=== PATIENT | female | born 1975 | race Caucasian/White ===

== ENCOUNTER 2017-12-29 11:44 | Outpatient (CLI) | payer OTHER ==
--- NOTE | 2018-01-01 18:16 | Mammography Report ---
DIGITAL BILATERAL MAMMOGRAPHY: 12/29/2017 HISTORY: For baseline screening. Bilateral implants. TECHNIQUE: Bilateral digital CC, MLO, and implant displaced views. COMPARISON: None. FINDINGS: The breast tissue is heterogeneously dense. No suspicious dominant mass, architectural distortion, skin thickening, suspicious microcalcifications or other finding. Bilateral implants are present. IMPRESSION: NEGATIVE. BI-RADS category 1 - negative. Suggest return to routine screening in 12 months. STANDARD QUALIFYING STATEMENTS 1. This examination was reviewed with the aid of Computed-Aided Detection (CAD). 2. A negative or benign imaging report should not delay biopsy if clinically suspicious findings are present. Consider surgical consultation if warranted. More than 5% of cancers are not identified by imaging. 3. Dense breasts may obscure an underlying neoplasm. cc: ROCK WILSON TD: 01/01/2018 16:10 cc: ROCK WILSON
== END 2017-12-29 11:45 | disposition home or self-care (01) ==
LOC: DI 11:44
PROVIDERS: ATTEND Family Medicine
DX: Z12.31 Encounter for screening mammogram for malignant neoplasm of breast (principal); Z98.82 Breast implant status
CPT/HCPCS: 77067

== ENCOUNTER 2021-10-26 15:51 | Outpatient (CLI) | payer OTHER ==
--- NOTE | 2021-10-27 12:03 | Ultrasound Report ---
PROCEDURE: Pelvic w/Transvaginal INDICATIONS: EXCESSIVE AND FREQUENT MENSTRATION TECHNIQUE: Real-time scanning was performed of the pelvic organs, with image documentation. Additional endovagi nal scanning was necessary due to incomplete visualization of the adnexal and endometrial structures by transabdominal scanning. COMPARISON: None. FINDINGS: Limited scanning through the kidneys shows no hydronephrosis. No pathologic free abdominal or pelvic fluid. Uterus: Uterus is at the upper limits of normal in size at 9.9 x 5.1 x 6.4 cm. The uterine echotextu re is heterogeneous secondary to several myometrial masses which appear intramural. The first is ante rior fundal measuring 2.1 cm, the largest is posterior to the left measuring 3.1 cm, and another is s een posterior mid body measuring 1.3 cm. The endometrium measures 5.3 mm in combined thickness. Ovaries: The right ovary measures 5.4 x 2.7 x 2.5 cm for a volume of 19.2 cc. The left ovary measure s 3.8 x 1.9 x 2.8 cm for a volume of 10.5 cc. The right ovary contains a dominant follicle containing a daughter follicle measuring 2.4 and 1.8 cm respectively. There is normal vascularity in the right ovary and otherwise normal follicular echotexture. The left ovary has a normal follicular echotexture with less than 12 follicles present and normal vascularity. Cervix: Closed. Several tiny simple nabothian cysts are present. Bladder: Normal Other: No free pelvic fluid. No suspicious adnexal masses. IMPRESSION: 1. Normal sonographic appearance of the endometrium. 2. Borderline enlarged uterus with several myometrial fibroids. 3. Normal ovaries. Reviewed by: Sara Cali MD on 10/27/2021 12:02 PM PDT Approved by: Sara Cali MD on 10/27/2021 12:02 PM PDT Station ID: [id number]
== END 2021-10-26 15:52 | disposition home or self-care (01) ==
LOC: DI 15:51
PROVIDERS: ATTEND Naturopath
DX: N92.1 Excessive and frequent menstruation with irregular cycle (principal); D25.9 Leiomyoma of uterus, unspecified

== ENCOUNTER 2023-08-20 19:39 | Outpatient (CLI) | payer OTHER | END 2023-08-20 23:59 | disposition EMS.NT | LOC: EMS 19:39 | DX: F41.9 Anxiety disorder, unspecified (principal); R45.1 Restlessness and agitation ==

== ENCOUNTER 2023-08-20 22:55 | Emergency (ER) | payer OTHER ==
[2023-08-20 23:06] VITALS: BP 183/113; O2SAT 99
== END 2023-08-20 23:16 | disposition home or self-care (01) ==
LOC: ED 22:55
DX: Z76.89 Persons encountering health services in other specified circumstances (principal)

== ENCOUNTER 2024-03-04 16:41 | Emergency (ER) | payer MEDICAID, OTHER ==
[2024-03-04 17:05] LABS: BASOPHILS # (AUTO) 0.1 10^3/uL (0.0-0.1); BASOPHILS % (AUTO) 0.6 %; EOSINOPHILS % (AUTO) 0.5 %; HCT - HEMATOCRIT 28.6 % (37.0-47.0); HGB - HEMOGLOBIN 7.8 g/dL (12.0-16.0); LYMPHOCYTES % (AUTO) 12.3 %; MEAN CORPUSCULAR HEMOGLOBIN 19.1 pg (27.0-31.0); MEAN CORPUSCULAR HGB CONC 27.3 g/dL (32.0-36.0); MEAN CORPUSCULAR VOLUME 69.9 fL (81.0-99.0); MEAN PLATELET VOLUME 9.2 fL (7.9-10.8); MONOCYTES # (AUTO) 0.4 10^3/uL (0.0-1.0); MONOCYTES % (AUTO) 4.9 %; NEUTROPHILS # (AUTO) 6.3 10^3/uL (1.5-6.6); NEUTROPHILS % (AUTO) 81.3 %; PLT - PLATELET COUNT 426 10^3/uL (130-450); RED BLOOD COUNT 4.09 10^6/uL (4.20-5.40); RED CELL DISTRIBUTION WIDTH 21.2 % (12.0-15.0); WHITE BLOOD COUNT 7.7 x10^3/uL (4.8-10.8)
--- NOTE | 2024-03-04 17:14 | ED Physician Documentation ---
History of Present Illness - Stated complaint Stated Complaint: NUMBNESS IN HANDS/LEGS - Chief complaint Chief Complaint: Neuro - History obtained from History obtained from: Patient - History of Present Illness Timing: How many weeks ago (3) Pain level max: 0 Pain level now: 0 - Additonal information Additional information: Patient is a 48-year-old female who presents to the emergency department after seeing her primary care provider today. She states that she has had numbness in her bilateral feet and lower legs as well as in her bilateral hands over the past 3 weeks. She states that she does feel weak when she walks but she states most of her weakness is in trying to dorsiflex her feet. She has had no loss of bowel or bladder control. No difficulty breathing. No recent travel. No recent illnesses. Only medication is Adderall. Denies any drug use. Denies any IV drug use. No trauma. She states that she has not drink alcohol in approximately 6 months since having to wear an ankle monitoring bracelet. She states prior to that she only drink alcohol about once per week. She is in the emergency department with her mother. Review of Systems Constitutional: denies: Fever, Chills GI: denies: Vomiting Skin: denies: Rash Musculoskeletal: denies: Neck pain, Back pain Neurologic: denies: Confused PD PAST MEDICAL HISTORY - Past Medical History Past Medical History: Yes Cardiovascular: Peripheral Vascular Disease - Past Surgical History Past Surgical History: Yes Ortho: Other - Allergies Allergies/Adverse Reactions: Allergies Allergy/AdvReac Type Severity Reaction Status Date / Time No Known Drug Allergies Allergy Verified 03/04/24 16:48 - Social History Does the pt smoke?: No Smoking Status: Never smoker Does the pt drink ETOH?: Yes Does the pt have substance abuse?: No - Immunizations Immunizations are current?: No Immunizations: Other immun not current PD ED PE NORMAL - Vitals Vital signs reviewed: Yes - General General: Alert and oriented X 3, No acute distress - HEENT HEENT: PERRL, Moist mucous membranes - Neck Neck: Supple, no meningeal sign - Cardiac Cardiac: RRR, Strong equal pulses - Respiratory Respiratory: No respiratory distress, Clear bilaterally - Abdomen Abdomen: Soft, Non tender, Non distended - Back Back: No CVA TTP, No spinal TTP - Derm Derm: Warm and dry - Extremities Extremities: No edema, No calf tenderness / cord - Neuro Neuro: Alert and oriented X 3, sole assessor 2-12 intact, Other (Normal equipment or machinery cleaner strength bilaterally. Normal deep tendon reflexes of the brachioradialis bilaterally, knee and ankle jerk. Downgoing Babinski bilaterally. There is decreased strength of dorsiflexion of both feet. Otherwise normal examination of the extremities and strength throughout.) - Psych Psych: Normal mood, Normal affect Results - Vitals Vitals: Vital Signs - 24 hr 03/04/24 03/04/24 03/04/24 16:48 19:20 19:51 Temperature 36.9 C Heart Rate 111 H 76 81 Respiratory 16 20 22 Rate Blood Pressure 172/109 H 179/79 H O2 Saturation 100 99 95 Oxygen O2 Source Room air - Labs Labs: Laboratory Tests 03/04/24 03/04/24 03/04/24 16:59 16:59 18:15 WBC 7.7 RBC 4.09 L Hgb 7.8 L Hct 28.6 L MCV 69.9 L MCH 19.1 L MCHC 27.3 L RDW 21.2 H Plt Count 426 MPV 9.2 Neut # (Auto) 6.3 Lymph # (Auto) 1.0 L Bennett # (Auto) 0.4 Eos # (Auto) 0.0 Baso # (Auto) 0.1 Absolute Nucleated RBC 0.00 Nucleated RBC % 0.0 Platelet Estimate NORMAL (130-450,000) Platelet Morphology NORMAL APPEARANCE RBC Morph Micro Appear 2+ MICROCYTOSIS Sodium 135 Potassium 3.5 Chloride 99 L Carbon Dioxide 28 Anion Gap 8.0 BUN 14 Creatinine 0.6 Estimated GFR (MDRD) 107 Glucose 153 H Calcium 9.7 Magnesium 1.6 L Total Bilirubin 0.5 AST 25 ALT 21 Alkaline Phosphatase 34 L Total Creatine Kinase 246 H Total Protein 7.4 Albumin 4.5 Globulin 2.9 Albumin/Globulin Ratio 1.6 Lipase 26 Vitamin B12 477 Folate 26.3 TSH 1.09 Urine Color YELLOW Urine Clarity CLEAR Urine pH 6.0 Ur Specific [place] 1.020 Urine Protein NEGATIVE Urine Glucose (UA) NEGATIVE Urine Ketones NEGATIVE Urine Occult Blood SMALL H Urine Nitrite NEGATIVE Urine Bilirubin NEGATIVE Urine Urobilinogen 0.2 (NORMAL) Ur Leukocyte Esterase NEGATIVE Urine RBC 6-10 H Urine WBC 0-3 Ur Squamous Epith Cells FEW Squamous Urine Bacteria None Seen Ur Microscopic Review INDICATED Urine Culture Comments NOT INDICATED Urine HCG, Qual NEGATIVE Salicylates < 1.5 Urine Opiates Screen NEGATIVE Ur Buprenorphine Scrn NEGATIVE Ur Oxycodone Screen NEGATIVE Urine Methadone Screen NEGATIVE Acetaminophen 0.3 Ur Barbiturates Screen NEGATIVE Ur Tricyclics Screen NEGATIVE Ur Phencyclidine Scrn NEGATIVE Ur Amphetamine Screen POSITIVE H U Methamphetamines Scrn NEGATIVE U Benzodiazepines Scrn NEGATIVE Urine Cocaine Screen NEGATIVE U Cannabinoids Screen NEGATIVE Ur Drug Screen Comment CUTOFF CONC BELOW: Ethyl Alcohol < 10.0 - Rads (name of study) head ct Relevant Findings:: Final report received, See rad report PD Medical Decision Making - ED course Complexity details: reviewed results, re-evaluated patient, considered differential, d/w patient, d/w family ED course: No significant neurological abnormalities in the emergency department other than decreased strength in dorsiflexion of the bilateral ankles. No acute findings on head CT. Laboratory testing shows mild hypomagnesia her magnesium was replaced. She has chronic iron deficiency anemia as well. Recently was started on iron by her doctor. Is asymptomatic with this in the emergency department. Unclear etiology of her symptoms, likely that she will need further evaluation with MRI likely of the head and entire spine. Recommend that she follow-up with her PCP for this. She may also benefit from a neurology referral. No difficulty speaking, swallowing or breathing. No paralysis. Ambulating well in the emergency department, does appear to have weak dorsiflexion, especially on the right foot when walking. Patient counseled regarding signs and symptoms for which I believe and urgent re-evaluation would be necessary. Patient with good understanding of and agreement to plan and is comfortable going home at this time This document was made in part using voice recognition software. While efforts are made to proofread this document, sound alike and grammatical errors may occur. Departure - Departure Disposition: 01 Home, Self Care Clinical Impression: Paresthesia, Muscle weakness Condition: Good Instructions: ED Weakness [facility] Follow-Up: Prasad Arzate, PEREZ, [employer], [employer] [Primary Care Provider] - Tomorrow Comments: Your testing tonight did not show any acute abnormalities. Your head CT and laboratory testing are mostly normal except for a mild low magnesium. This was replaced. It is recommended that you have an MRI performed, likely of your head and spine. A neurology referral may be useful for you as well. This can be obtained with your primary care provider. Please return if you worsen. Forms: PCP List Discharge Date/Time: 03/04/24 20:23
[2024-03-04 17:21] LABS: ACETAMINOPHEN 0.3 ug/mL; ALBUMIN 4.5 g/dL (3.2-5.5); ALBUMIN/GLOBULIN RATIO 1.6 (1.0-2.2); ALKALINE PHOSPHATASE 34 IU/L (42-121); ALT ALANINE AMINOTRANSFERASE 21 IU/L (10-60); AST ASPARTATE AMINOTRANSFERASE 25 IU/L (10-42); BILIRUBIN,TOTAL 0.5 mg/dL (0.2-1.0); BUN - BLOOD UREA NITROGEN 14 mg/dL (6-20); CALCIUM 9.7 mg/dL (8.5-10.3); CARBON DIOXIDE - CO2 28 mmol/L (21-32); CHLORIDE 99 mmol/L (101-111); CK- CREATINE KINASE 246 IU/L (30-223); CREATININE 0.6 mg/dL (0.6-1.3); ETOH - ETHANOL < 10.0 mg/dL; GFR - MDRD 107 (>89); GLUCOSE 153 mg/dL (74-104); LIPASE 26 U/L (11-82); MAGNESIUM 1.6 mg/dL (1.7-2.3); POTASSIUM 3.5 mmol/L (3.5-4.5); SODIUM 135 mmol/L (135-145); TOTAL PROTEIN 7.4 g/dL (6.4-8.9)
[2024-03-04 17:24] LABS: SALICYLATE < 1.5 mg/dL
[2024-03-04 17:33] LABS: THYROID STIMULATING HORMONE 1.09 uIU/mL (0.34-5.60)
[2024-03-04 18:00] LABS: PLATELET ESTIMATE, MANUAL NORMAL (130-450,000) (NORMAL); PLATELET MORPHOLOGY NORMAL APPEARANCE (NORMAL)
[2024-03-04] MEDS: MAGNESIUM SULFATE 2 GRAM 2 GM/50 ML BAG IV ONE (18:12)
[2024-03-04] MEDS: SODIUM CHLORIDE 0.9% 1,000 ML IV STA (18:12)
[2024-03-04 18:39] LABS: BILIRUBIN,URINE NEGATIVE (NEGATIVE); GLUCOSE, URINE (UA) NEGATIVE (NEGATIVE); KETONES,URINE (UA) NEGATIVE (NEGATIVE); LEUKOCYTE ESTERASE, URINE NEGATIVE (NEGATIVE); NITRITE,URINE NEGATIVE (NEGATIVE); OCCULT BLOOD,URINE SMALL (NEGATIVE); PROTEIN,URINE NEGATIVE (NEGATIVE); UROBILINOGEN,URINE 0.2 (NORMAL) E.U./dL (NORMAL)
[2024-03-04 18:42] LABS: CLARITY,URINE CLEAR (CLEAR); HCG UR QUAL NEGATIVE
[2024-03-04 19:04] LABS: WBC,URINE 0-3 /HPF (0-5)
[2024-03-04 19:05] LABS: BACTERIA,URINE None Seen /HPF (None Seen); SQUAMOUS EPITHELIAL CELL,UR FEW Squamous (<= Few)
[2024-03-04 19:07] LABS: AMPHETAMINE SCREEN,URINE POSITIVE (NEGATIVE); COCAINE SCREEN URINE NEGATIVE (NEGATIVE); METHAMPHETAMINES SCREEN, URINE NEGATIVE (NEGATIVE); OPIATE SCREEN, URINE NEGATIVE (NEGATIVE); THC CANNABINOID SCREEN, URINE NEGATIVE (NEGATIVE)
[2024-03-04 19:08] LABS: BARBITURATE SCREEN,UR NEGATIVE (NEGATIVE); BENZODIAZEPINES SCREEN, URINE NEGATIVE (NEGATIVE); BUPRENORPHINE SCREEN, URINE NEGATIVE (NEGATIVE); METHADONE SCREEN, URINE NEGATIVE (NEGATIVE); OXYCODONE SCREEN, URINE NEGATIVE (NEGATIVE); TRICYCLIC ANTIDEPRESSANT,URINE NEGATIVE (NEGATIVE)
[2024-03-04 20:00] VITALS: BP 179/79; O2SAT 95
--- NOTE | 2024-03-04 20:12 | CT Report ---
PROCEDURE: Head WO INDICATIONS: weakness B LE TECHNIQUE: Noncontrast 4.5 mm thick angled axial sections acquired from the foramen magnum to the vertex. For r adiation dose reduction, the following was used: automated exposure control, adjustment of mA and/or kV according to patient size. COMPARISON: None. FINDINGS: Image quality: Diagnostic. CSF spaces: Basal cisterns are patent. No extra-axial fluid collections. Ventricles are normal in size and shape. Brain: No midline shift. No intracranial masses or hemorrhage. Mix-white matter interface is norm al. Skull and face: Calvarium and visualized facial bones are intact, without suspicious lesions. Sinuses: Visualized sinuses and mastoids are clear. IMPRESSION: No acute intracranial pathology. Reviewed by: Marietta Aponte MD, PhD on 03/04/2024 8:10 PM PDT Approved by: Marietta Aponte MD, PhD on 03/04/2024 8:10 PM PDT Station ID: [id number]
== END 2024-03-04 20:23 | disposition home or self-care (01) ==
LOC: ED 16:41
DX: R20.2 Paresthesia of skin (principal); M62.81 Muscle weakness (generalized); E83.42 Hypomagnesemia; D50.9 Iron deficiency anemia, unspecified
CPT/HCPCS: 36415; 80053; 80143; 80179; 80306; 81001; 81003; 81025; 82077; 82550; 82607; 82746; 83690; 83735; 84443; 85025; 87086; 96365; 99283

== ENCOUNTER 2024-03-08 09:18 | Outpatient (CLI) | payer MEDICAID ==
[2024-03-08 12:14] LABS: % IRON SATURATION 3 % (20-50); CHOL/HDL RATIO 1.9 (<4.4); CHOLESTEROL 202 mg/dL; HDL CHOLESTEROL 105 mg/dL; IRON 11 ug/dL (50-212); LDL CHOLESTEROL,CALCULATED 86 mg/dL; LDL/HDL RATIO 0.8 (<4.4); TOTAL IRON BINDING CAPACITY 431 ug/dL (250-450); TRANSFERRIN 308 mg/dL (203-362); TRIGLYCERIDES 53 mg/dL; VLDL CHOLESTEROL 11 mg/dL
[2024-03-08 12:39] LABS: FERRITIN 3.7 ng/mL (11.0-306.8)
[2024-03-08 13:16] LABS: ESTIMATED AVERAGE GLUCOSE 105 mg/dL (70-100); HEMOGLOBIN A1c% 5.3 % (4.27-6.07)
== END 2024-03-08 09:19 | disposition home or self-care (01) ==
LOC: LAB.N 09:18
DX: R53.83 Other fatigue (principal); R63.4 Abnormal weight loss
CPT/HCPCS: 36415; 80061; 82728; 83036; 83540; 83721; 84466

== ENCOUNTER 2024-04-10 16:08 | Outpatient (CLI) | payer MEDICAID ==
[~2024-04-10 16:08] MED LIST: GADOTERATE MEGLUMINE 5 MMOL/10 ML VIAL ONE
[2024-04-10] MEDS: GADOTERATE MEGLUMINE 5 MMOL/10 ML VIAL IVP ONE (17:22)
--- NOTE | 2024-04-10 19:54 | MRI Report ---
PROCEDURE: Brain W/WO INDICATIONS: UNSTEADY GAIT CONTRAST: clariscan 9.8ml TECHNIQUE: Noncontrast axial T1 spin echo, axial T2 fast spin echo, sagittal and axial FLAIR, coronal T2 fast sp in echo, axial gradient echo, axial diffusion and ADC through the brain. After the administration of contrast, axial and coronal T1 spin echo with fat saturation through the brain. COMPARISON: CT head 03/04/2024. FINDINGS: Image quality: Excellent. CSF spaces: Basal cisterns are patent. No extra-axial fluid collections. Ventricles are normal in size and shape. Brain: No midline shift. No intracranial bleeds or masses. No abnormal intracranial enhancement. M ultiple scattered periventricular and subcortical white matter hyperintensities are present. In addit ion, several small hyperintensities are present within the corpus callosum. The brainstem appears nor mal. Diffusion-weighted images demonstrate no acute ischemic insults. No chronic ischemic insults. Normal intravascular flow voids are present. Skull and face: Calvarial marrow is normal in signal. Orbits appear normal. Sinuses: Sinuses demonstrate mild to moderate pansinus mucosal thickening. IMPRESSION: Multiple periventricular and subcortical white matter hyperintensities as well as several small foci in the corpus callosum. There are nonenhancing and no restricted diffusion is identified. While these could represent early changes of chronic microvascular ischemia, given patient age and clinical hist ory, recommend clinical correlation to potential demyelinating disease. Reviewed by: Bertha Foy MD on 04/10/2024 7:52 PM PDT Approved by: Bertha Foy MD on 04/10/2024 7:52 PM PDT Station ID: [id number]
== END 2024-04-10 16:09 | disposition home or self-care (01) ==
LOC: DI 16:08
DX: R26.81 Unsteadiness on feet (principal); R93.0 Abnormal findings on diagnostic imaging of skull and head, not elsewhere classified
CPT/HCPCS: 70553; A9575